=== PATIENT | female | born 1955 | race Caucasian/White ===

== ENCOUNTER 2023-10-24 11:16 | Outpatient (CLI) | payer MEDICARE, MEDICAID ==
[~2023-10-24 11:16] MED LIST: ALBU8HFA PO; ATOR80TA PO; BECL7.3A INH; CALC-952 PO; CETI10TA19 PO; FLUT50DI3 IH; FOLI0.4T14 PO; GABA300C PO; LINA5TAB4 PO; LISI2.5T89 PO; METF-1203 PO
== END 2023-10-24 23:59 | disposition home or self-care (01) ==
LOC: RAD 11:16
PROVIDERS: ATTEND Family Medicine
DX: M16.0 Bilateral primary osteoarthritis of hip (principal); M25.551 Pain in right hip
CPT/HCPCS: 73522

== ENCOUNTER 2024-11-12 09:57 | Inpatient (IN) | payer BC, OTHER ==
[~2024-11-12] VITALS: Ht 172.7 cm; Wt 110.7 kg
[~2024-11-12 09:57] MED LIST changes: +ATOR-429 PO; -ATOR80TA PO
--- NOTE | 2024-11-12 10:24 | Physician Documentation ---
History of Present Illness General Chief Complaint: Leg Pain Stated Complaint: POSS DVT IN L LEG Time Seen by MD: 10:13 Primary Medical Doctor: NONE History of Present Illness Initial Comments 69-year-old female referred to the emergency department for screening for your left DVT. No associated shortness of breath, near-syncope or palpitations. Left lower extremity with mild swelling only some plantar surface pain and some popliteal discomfort. Patient reports mom and dad both had bleeding diathesis making them at risk for clots. She has had numerous orthopedic surgeries. Medication Reconciliation Allergies: Coded Allergies: No Known Allergies (Unverified , 12/08/09) Scheduled Atorvastatin Calcium* (Lipitor*), 1 TABLET PO HS, (Reported) Beclomethasone Dipropionate (Qvar 40 MCG INHALER), 2 PUFFS INH DAILY, (Reported) Calcium Carbonate/Vitamin D3 (Calcium 600 + Vit D3 400 Tab), 1 TAB PO DAILY, (Reported) Cetirizine HCl (Cetirizine HCl), 1 TAB PO DAILY, (Reported) Fluticasone Propionate (Flovent Diskus), 50 MCG IH DAILY, (Reported) Folic Acid (FOLIC ACID tablet), 1 TAB PO DAILY, (Reported) Gabapentin (Neurontin), 1 CAP PO Q8H, (Reported) Linagliptin (Tradjenta), 1 TAB PO DAILY, (Reported) Lisinopril (Zestril), 1 TAB PO DAILY, (Reported) Metformin HCl (Metformin HCl), 2 TAB PO BID, (Reported) Scheduled PRN albuterol inhaler (Pro-Air Inhaler), 1-2 PUFFS PO Q4H PRN for shortness of breath, (Reported) Review of Systems All Other Systems at this time: Reviewed and Negative Constitutional: Denies: fever Musc: Reports: joint pain, joint swelling Physical Exam Physical Exam Vital Signs: RN Vital Signs have been reviewed: Yes, Temperature: 97.9, Source: Temporal, Heart Rate: 96, Respiratory Rate: 18, BP: 131/79, Pulse Oximetry: 97, Weight: 110.650 Oxygen Flow Rate: 0 General Appearance: alert, WD/WN, mild distress Head: normal inspection Face: normal inspection Pupils/EOM/Fundus: PERRLA Neck: full range of motion Respiratory: no respiratory distress Cardiovascular: regular rate, rhythm Extremities: normal range of motion, calf tenderness, inflammation, edema, other (Reproducible pain with dorsiflexion, plantar surface discomfort with deep palpation.) Neurologic: oriented x4, business initiatives manager II-XII nml as tested Motor / Sensory: no motor deficit, no sensory deficit Psychiatric: normal mood/affect Skin: normal color, warm/dry Lymphatic: no adenopathy Progress Results/Orders Results/Orders Orders - MANJIT GARCIA Vl Venous (11/12/24 ) Completed Orders - MANJIT GARCIA Vl Venous (11/12/24 ) Vital Signs 11/12/24 11/12/24 11/12/24 10:00 11:01 11:01 Temp 97.9 97.9 Pulse 96 83 Resp 18 16 16 B/P (MAP) 131/79 97/56 (70) Pulse Ox 97 97 O2 Flow Rate 0 0 Medical Decision Making Differential Diagnosis Examination history warrants ultrasound imaging of the left lower extremity to evaluate for deep vein thrombosis. Can overlook follow up ability of Narayan's cyst versus plantar fasciitis. Prelim report from roof service technician has a patient has on proximal deep vein thrombus. High suspicion for underlying coagulopathy being responsible for clot. We will go ahead and initiate labs and consult for admission. Interval reassessment shows patient remains without hypoxia, shortness of breath with the palpitations. Strong cap refill to the distal extremity. Departure Disposition: ADMITTED INPATIENT Impression: Primary Impression: DVT, lower extremity, proximal Qualified Codes: I82.4Y2 - Acute embolism and thrombosis of unspecified deep veins of left proximal lower extremity Referrals: NO PRIMARY CARE PROVIDER (PCP) Signature Scribe Signature: , Attestation: JOSE THOMAS C PAC Nov 12, 2024 10:24
--- NOTE | 2024-11-12 13:45 | VASCULAR REPORT ---
Bilateral lower extremity venous duplex Clinical History: Pain Comparison: None Technique: Duplex Doppler evaluation of the deep venous systems of both lower extremities from the common femora l veins to the popliteal veins including color Doppler and spectral/pulsed waveform analysis was perf ormed. Findings: RIGHT SIDE: The common femoral vein demonstrates appropriate compressibility and waveform variability. LEFT SIDE: The common femoral vein is partially compressible There is compressibility/patency of the great saphenous vein at the proximal thigh. The femoral vein demonstrates chronic thrombus and noncompressibility. The popliteal vein demonstrates chronic thrombus and noncompressibility.. There is normal compressibility at the tibioperoneal trunk. Impression: Chronic occlusive thrombus noted throughout the left leg from the femoral vein to the popliteal vein. No thrombus noted in the posterior tibial vein and peroneal veins. Left common femoral vein appears partially occluded. Left greater saphenous vein appears compressible with spontaneous phasic flow. Contralateral common femoral vein shows normal spontaneous phasic flow and augmentation.
[2024-11-12] MEDS ORDERED: acetaminophen 325mg tablet PO PRN (14:25)
[2024-11-12] MEDS ORDERED: ondansetron/PF 4mg/2ml inj IV PRN (14:25)
[2024-11-12] MEDS ORDERED: magnesium hydroxide 30ml (MOM) UD suspension PO PRN (14:25)
[2024-11-12] MEDS ORDERED: potassium Cl 20 mEq SR tablet PO PRN ×2 (14:25)
[2024-11-12] MEDS ORDERED: magnesium sulf-water 2g/50mL 50 ML IV PRN (14:25)
[2024-11-12] MEDS ORDERED: magnesium sulf-water 4G/100mL 100 ML IV PRN (14:25)
[2024-11-12] MEDS ORDERED: mag hydrox/Alum hydrox/simeth 30ml oral suspension PO PRN (14:25)
[2024-11-12] MEDS ORDERED: potassium Cl 40MEQ/1/2NS 520ml 520 ML IV PRN (14:25)
[2024-11-12] MEDS ORDERED: morphine 2 MG/ML inj. syringe IV PRN ×2 (14:25)
[2024-11-12 14:26] LABS: BASOPHILS # (AUTO) 0.1 X10'3 (0-0.2); BASOPHILS % (AUTO) 0.7 % (0-1); EOSINOPHILS # (AUTO) 0.7 X10'3 (0-0.9); EOSINOPHILS % (AUTO) 7.5 % (0-6); HEMATOCRIT 35.7 % (35.0-45.0); HEMOGLOBIN 11.7 g/dl (12.0-16.0); LYMPHOCYTES # (AUTO) 2.4 X10'3 (1.1-4.8); MEAN CORPUSCULAR HEMOGLOBIN 29.7 PG (27.0-31.0); MEAN CORPUSCULAR HGB CONC 32.7 g/dL (33.0-36.5); MEAN CORPUSCULAR VOLUME 90.7 FL (78-98); MEAN PLATELET VOLUME 8.3 FL (7.4-10.4); MONOCYTES # (AUTO) 0.4 X10'3 (0-0.9); MONOCYTES % (AUTO) 5.1 % (2-12); NEUTROPHILS # (AUTO) 5.2 X10'3 (1.8-7.7); NEUTROPHILS % (AUTO) 59.7 % (42-75); PLATELET COUNT 273 X10'3 (140-440); RED BLOOD COUNT 3.93 X10'6 (4.20-5.60); RED CELL DISTRIBUTION WIDTH 14.6 % (11.5-14.5); WHITE BLOOD COUNT 8.8 X10'3 (4.5-11.0)
[2024-11-12 14:49] LABS: ALANINE AMINOTRANSFERASE 19 U/L (12-78); ALBUMIN 3.4 G/DL (3.4-5.0); ALBUMIN/GLOBULIN RATIO 0.9 (1.1-1.5); ALKALINE PHOSPHATASE 98 IU/L (46-116); ANION GAP 11 (8-16); ASPARTATE AMINO TRANSFERASE 13 U/L (10-37); BILIRUBIN,TOTAL 0.7 MG/DL (0.1-1.0); BLOOD UREA NITROGEN 22 MG/DL (7-18); BUN/CREATININE RATIO 23.7 (10.0-20.0); CALCIUM 9.1 MG/DL (8.5-10.1); CHLORIDE 107 MMOL/L (99-107); CREATININE 0.93 MG/DL (0.40-0.90); GLUCOSE 103 MG/DL (70-104); POTASSIUM 4.2 MMOL/L (3.5-5.1); SODIUM 145 MMOL/L (135-145); TOTAL CARBON DIOXIDE 27.2 MMOL/L (24-32); eCRCL 59 ML/MIN; eGFR 60 ML/MIN
[2024-11-12 14:50] LABS: APTT 22 SECONDS (22-32); PROTHROMBIN TIME 10.4 SECONDS (9.0-12.0)
[2024-11-12] MEDS: HEPARIN DRIP DVT/PE -**PHARMACIST TO DOSE IV SCH (14:55)
--- NOTE | 2024-11-12 15:00 | HISTORY AND PHYSICAL-Residence ---
History & Physical Providers to CC Resident Creating Document: LIDA CHAVEZ, RES ~ History of Present Illness Primary Medical Doctor: Jenny Puri DO. [facility]. Waist Pleater: Dr. Patton Reason for Admit\Complaint: Left lower extremity swelling History of Present Illness Jenny Puri DO. [facility]. Waist Pleater: Dr. Patton Urologist: Dr. Arrington 69 years old female patient with past medical history of asthma, diabetes mellitus, kidney stones, dyslipidemia came to the hospital with chief complaint of left lower extremity swelling. The patient reports that three days ago she noticed that her left lower extremity was getting puffy, up in the following days she states that this swelling was not improving reason for which she decided to go to an urgent care were recommended her to come to the hospital. The patient endorses that associated to this is wanting she does have pain described as a tingling type, without radiation, exacerbated with palpation, improved with resting, scaling as 2/10 when resting and 5/10 with movement. She denies any recent history of traveling or immobilization. Currently denies chest pain, shortness of, palpitations, urinary or intestinal symptoms. Allergies: Coded Allergies: No Known Allergies (Unverified , 12/08/09) Home Medications Home Medications Active Reported Calcium 600 + Vit D3 400 Tab (Calcium Carbonate/Vitamin D3) 1 Each Tablet 1 Tab PO DAILY Tradjenta (Linagliptin) 5 Mg Tablet 1 Tab PO DAILY 30 Days FOLIC ACID tablet (Folic Acid) 0.4 Mg Tablet 1 Tab PO DAILY 30 Days Neurontin (Gabapentin) 300 Mg Capsule 1 Cap PO Q8H 30 Days Zestril (Lisinopril) 2.5 Mg Tablet 1 Tab PO DAILY 30 Days Cetirizine HCl 10 Mg Tab.chew 1 Tab PO DAILY 30 Days Flovent Diskus (Fluticasone Propionate) 50 Mcg Disk.w.dev 50 Mcg IH DAILY Pro-Air Inhaler (Albuterol) 8.5 Gm Inhaler 1-2 Puffs PO Q4H PRN Qvar 40 MCG INHALER (Beclomethasone Dipropionate) 40 Mcg/Actuation Inhaler 2 Puffs INH DAILY Lipitor* (Atorvastatin Calcium) 80 Mg Tablet 1 Tablet PO HS Metformin HCl 500 Mg Tablet 2 Tab PO BID Past Medical History Past Medical History Asthma. Diabetes mellitus currently taking metformin. Kidney stones. Dyslipidemia taking atorvastatin 80 mg daily. Past Surgical History Surgical History Comment Left knee replacement 10 years ago. Right knee replacement five years ago. Nephrolithiasis with lithotripsy with stent placement 1 year ago. Lumbar spine orthopedic surgery. Family History Family History: Maternal family history of coagulation disorder Paternal family history of coagulation disorder Past Social History Smoking: Quit greater than 1 year (As per patient she quit smoking 40 years ago. She used to smoke for 15-20 years around half to one pack a day.) Alcohol Use: Rarely (At holidays, about 1 drink per year. ) Drug Use: None Lives with: Family Lives In: Home Occupation: disabled, retired (The patient used to work as a bus dispatcher [place] ROS All Other Systems: Reviewed and Negative Cardiovascular: Denies: chest pain, lightheadedness, palpitations Gastrointestinal: Denies: abdominal pain, diarrhea Genitourinary: Denies: burning, hematuria, pain Exam Vitals: Vital Signs Date Time Temp Pulse Resp B/P (MAP) Pulse Ox O2 Delivery O2 Flow Rate FiO2 11/12/24 11:01 97.9 83 16 97/56 (70) 97 0 Physical exam: General: Well alert, well oriented, not confused, not agitated, not in acute distress, well cooperated during the physical. HEENT: Conjunctive are pink, sclerae clear, no icterus, pupil is equal in both sides, reactive to light, no ear discharge, no pharyngeal erythema or an edema. Neck: Supple, no JVD, no lymphadenopathy and thyromegaly. Chest: Equal air entry on both lungs, no additional sounds no rhonchi no wheezing at the moment. Cardiovascular: S1-S2 regular sinus rhythm and, regular rate, no gallops, no rubs, no murmurs Abdomen: No visible peristalsis, Bowel sounds present on auscultation, soft, nontender, no guarding, no rigidity Extremities: No obvious deformities, capillary refill intact, peripheral pulsations are intact on both sides. Tenderness in the left lower extremity with deep palpation. Edema in left lower extremity nonpitting. Presence of scars in bilateral knees. Central Nervous System: No focal neurological deficits, no motor or sensory weakness in all 4 extremities, could move all 4 extremities, 2+ deep tendon reflexes, negative Babinski. Musculoskeletal: No joint swelling, deformities, inflammations, and no scoliosis. Mild tenderness at the level of the lumbar spine, scar the level of the lumbar spine. Skin: Warm and dry. Diagnostic Data Last Recorded Lab Results: 11/12/24 1403 Diagnostic Data: Laboratory Tests Test 11/12/24 14:03 Coagulation Comments Advance Care Planning Advanced Care plannin - 30 Minutes (I spent a total of 17 minutes on reviewing various resuscitative measures/ACP with the patient at the time of admission. The patient has decided on a full code status.) Additional Plan Assessment and plan: 69-year-old female patient came to the hospital with chief complaint of left lower extremity swelling. Left lower extremity swelling: Unprovoked DVT of left femoral vein: The patient came to the hospital with chief complaint of left lower extremity swelling. Tenderness to palpation. Vascular ultrasound: Chronic occlusive thrombus noted throughout the left leg from the femoral vein to the popliteal vein. No thrombus noted in the posterior tibial vein and peroneal veins. Left common femoral vein appears partially occluded. Left greater saphenous vein appears compressible with spontaneous phasic flow. Contralateral common femoral vein shows normal spontaneous phasic flow and augmentation. PT, INR and PTT within reference range. Started on heparin drip for DVT. Plan to continue for 48 hours. After that DOAC considered. Currently on NS at 50 mL/hour. The patient will require hypercoagulable state studies as an outpatient. Normocytic normochromic anemia: Hemoglobin 11.7, hematocrit 35.7, MCV 90.7. Follow-up iron studies. Diabetes mellitus: Glucose levels 103, hemoglobin A1c 6.3. Hyperglycemia/hypoglycemia protocol in place. Low-dose short-acting insulin sliding scale on place. History of Asthma: Albuterol p.r.n.. Code status: Full code DVT prophylaxis: Currently on heparin drip. Analgesia/sedation: Morphine, [place]. Line/tube: PIV GI prophylaxis: Protonix 40 mg p.o. daily. Nutrition: 75 carb controlled diet. PT: Ordered Prognosis: Guarded Disposition: The patient will be admitted to ortho floor. Lida Alvarado Internal Medicine Resident [facility] Date of Service: Nov 12, 2024 Billing Provider: STEFANIA ROPER MD Common Visit Codes: 01046-[id number] INP/OBS CARE (HIGH) Secondary Visit Codes: 60713-[id number] CARE PLAN 30 MINUTES LIDA CHAVEZ, MORTEZA Nov 12, 2024 15:00 STEFANIA ROPER MD Nov 13, 2024 21:40
[2024-11-12 15:06] LABS: THYROID STIMULATING HORMONE 1.19 ulU/ml (0.34-4.50)
[2024-11-12] MEDS ORDERED: heparin 10,000 units/1 ML INJ IV PRN (15:10)
[2024-11-12] MEDS: normal saline 1000ml 1,000 ML IV SCH (15:26)
[2024-11-12 15:32] LABS: HEMOGLOBIN A1C 6.3 % (4.5-6.2)
[2024-11-12] MEDS: heparin 10,000 units/1 ML INJ IV ONE (15:33)
[2024-11-12] MEDS: heparin 25,000 UNIT/250ml bag 250 ML IV PRN (15:35)
[2024-11-12] MEDS: MESSAGE TO NURSING IV ONE ×2 (15:39→22:50)
[2024-11-12 16:00] LABS: MAGNESIUM 1.4 MG/DL (1.5-2.4)
[2024-11-12 16:20] VITALS: BP 129/63; PULSE 74; RESP 16; TEMP 98.4; O2SAT 98
[2024-11-12 18:00] VITALS: BP 140/66; PULSE 94; RESP 16; TEMP 98.3; O2SAT 100
[2024-11-12] MEDS ORDERED: DEXTROSE 15 GM of carb/4 tabs (each vial/BOTTLE has 4 tablets) PO PRN ×2 (18:35)
[2024-11-12] MEDS ORDERED: glucagon, human recombinant 1mg kit SUBCUT PRN (18:35)
[2024-11-12] MEDS ORDERED: dextrose 50%-water 50ml dispensing syringe IV PRN ×2 (18:35)
[2024-11-12] MEDS ORDERED: albuterol 2.5 MG/3 ML nebule NEB PRN (18:35)
[2024-11-12] MEDS: K and/or MAG REPLACEMENT MC SCH (19:14)
--- NOTE | 2024-11-12 19:24 | RADIOLOGY REPORT ---
EXAM: XR Chest, 1 View CLINICAL INDICATION: screening hx of DVT TECHNIQUE: Frontal view of the chest. COMPARISON: None FINDINGS: LUNGS AND PLEURAL SPACES: Unremarkable. No consolidation. No pneumothorax. HEART: Unremarkable. No cardiomegaly. MEDIASTINUM: Unremarkable. Normal mediastinal contour. BONES/JOINTS: Unremarkable. No acute fracture. OTHER FINDINGS: . IMPRESSION: No acute cardiopulmonary process.
[2024-11-12 19:32] LABS: TOTAL IRON BINDING CAPACITY 300 UG/DL (259-388)
[2024-11-12 19:35] LABS: % IRON SATURATION 18 % (11-46); IRON 53 UG/DL (49-151)
[2024-11-12] MEDS: magnesium Cl slow-release 64mg tablet PO PRN (20:55)
[2024-11-12] MEDS: INSULIN LISPRO 100 UNIT/ML INSULN.PEN MULTI-DOSE SQ SCH (20:58)
[2024-11-12 22:00] VITALS: BP 120/58; PULSE 81; RESP 15; TEMP 98.1; O2SAT 94
[2024-11-12] MEDS: HYDROcodone/acetaminophen 5mg/325mg tablet PO PRN (23:20)
[2024-11-13] MEDS: MESSAGE TO NURSING IV ONE (03:30)
[2024-11-13 06:00] VITALS: BP 111/51; PULSE 79; RESP 16; TEMP 97.4; O2SAT 98
[2024-11-13] MEDS: pantoprazole 40mg Tablet.DR PO SCH (07:41)
[2024-11-13 08:41] LABS: BASOPHILS % (AUTO) 0.5 % (0-1); EOSINOPHILS # (AUTO) 0.6 X10'3 (0-0.9); EOSINOPHILS % (AUTO) 9.6 % (0-6); HEMATOCRIT 33.3 % (35.0-45.0); HEMOGLOBIN 11.2 g/dl (12.0-16.0); LYMPHOCYTES # (AUTO) 2.2 X10'3 (1.1-4.8); LYMPHOCYTES % (AUTO) 33.2 % (21-51); MEAN CORPUSCULAR HEMOGLOBIN 30.2 PG (27.0-31.0); MEAN CORPUSCULAR HGB CONC 33.6 g/dL (33.0-36.5); MEAN CORPUSCULAR VOLUME 89.8 FL (78-98); MEAN PLATELET VOLUME 8.3 FL (7.4-10.4); MONOCYTES # (AUTO) 0.3 X10'3 (0-0.9); MONOCYTES % (AUTO) 5.1 % (2-12); NEUTROPHILS # (AUTO) 3.4 X10'3 (1.8-7.7); NEUTROPHILS % (AUTO) 51.6 % (42-75); PLATELET COUNT 248 X10'3 (140-440); RED BLOOD COUNT 3.71 X10'6 (4.20-5.60); RED CELL DISTRIBUTION WIDTH 14.5 % (11.5-14.5); WHITE BLOOD COUNT 6.7 X10'3 (4.5-11.0)
[2024-11-13 09:00] LABS: ALANINE AMINOTRANSFERASE 17 U/L (12-78); ALBUMIN 3.1 G/DL (3.4-5.0); ALKALINE PHOSPHATASE 88 IU/L (46-116); ANION GAP 7 (8-16); ASPARTATE AMINO TRANSFERASE 19 U/L (10-37); BILIRUBIN,TOTAL 0.5 MG/DL (0.1-1.0); BLOOD UREA NITROGEN 15 MG/DL (7-18); CALCIUM 8.3 MG/DL (8.5-10.1); CHLORIDE 108 MMOL/L (99-107); GLUCOSE 131 MG/DL (70-104); MAGNESIUM 1.3 MG/DL (1.5-2.4); POTASSIUM 4.3 MMOL/L (3.5-5.1); SODIUM 143 MMOL/L (135-145); TOTAL PROTEIN 6.3 G/DL (6.4-8.2); eCRCL 55 ML/MIN; eGFR 55 ML/MIN
[2024-11-13] MEDS: apixaban 5mg tablet PO SCH (09:13)
[2024-11-13 09:31] LABS: CHOL/HDL RATIO 2.8 (0.00-4.99); CHOLESTEROL 118 MG/DL (0-200); HDL CHOLESTEROL 42 MG/DL (35-60); LDL CHOLESTEROL 55 MG/DL (50-100); TRIGLYCERIDES 126 MG/DL (20-135)
[2024-11-13 10:00] VITALS: BP 147/71; PULSE 77; RESP 20; TEMP 97.1; O2SAT 100
[2024-11-13 10:39] LABS: BILIRUBIN,URINE NEGATIVE (Neg); CLARITY,URINE CLEAR (Clear); COLOR,URINE YELLOW (Yellow); GLUCOSE, URINE NEGATIVE (Neg); KETONES,URINE NEGATIVE (Neg); LEUKOCYTE ESTERASE ,URINE SMALL (Neg); NITRITES, URINE NEGATIVE (Neg); OCCULT BLOOD,URINE TRACE-INTACT (Neg); PROTEIN,URINE NEGATIVE (Neg); UROBILINOGEN,URINE 0.2 E.U/dL (0.2-1.0)
[2024-11-13 10:50] LABS: UA COLLECTION TYPE NON-SPECIFIED
[2024-11-13 10:53] LABS: BACTERIA,URINE FEW /HPF (Neg); RBC,URINE 0-2 /HPF (0-2); SQUAMOUS EPITHELIAL CELL,UR FEW /LPF (FEW)
[2024-11-13 10:54] LABS: TRANSITIONAL EPI CELLS,URINE FEW /HPF
[2024-11-13 11:18] LABS: UA EOSINOPHILS NO EOS /HPF
[2024-11-13 11:19] LABS: TOTAL PROTEIN,URINE RANDOM 11.4 MG/DL
[2024-11-13 11:28] LABS: PRO BRAIN NATRIURETIC PEPTIDE 70 PG/ML (0-125)
[2024-11-13 12:11] VITALS: PULSE 74; RESP 14; O2SAT 98
--- NOTE | 2024-11-13 12:18 | PROGRESS NOTE- Residence ---
Progress Note - Resident Providers to CC Resident Creating Document: NAREN CHAVEZ, RES ~ Antibiotic Timeout Antibiotic Ordered?: No Subjective The patient has been evaluated at bedside. Currently denies any symptoms. Objective Vital Signs Date Time Temp Pulse Resp B/P (MAP) Pulse Ox O2 Delivery O2 Flow Rate FiO2 11/13/24 08:00 Room Air 11/13/24 06:00 97.4 79 16 111/51 (71) 98 11/12/24 15:42 0 Physical exam: General: Well alert, well oriented, not confused, not agitated, not in acute distress, well cooperated during the physical. HEENT: Conjunctive are pink, sclerae clear, no icterus, pupil is equal in both sides, reactive to light, no ear discharge, no pharyngeal erythema or an edema. Neck: Supple, no JVD, no lymphadenopathy and thyromegaly. Chest: Equal air entry on both lungs, no additional sounds no rhonchi no wheezing at the moment. Cardiovascular: S1-S2 regular sinus rhythm and, regular rate, no gallops, no rubs, no murmurs Abdomen: No visible peristalsis, Bowel sounds present on auscultation, soft, nontender, no guarding, no rigidity Extremities: No obvious deformities, capillary refill intact, peripheral pulsations are intact on both sides. Tenderness in the left lower extremity with deep palpation. Edema in left lower extremity nonpitting. Presence of scars in bilateral knees. Central Nervous System: No focal neurological deficits, no motor or sensory weakness in all 4 extremities, could move all 4 extremities, 2+ deep tendon reflexes, negative Babinski. Musculoskeletal: No joint swelling, deformities, inflammations, and no scoliosis. Mild tenderness at the level of the lumbar spine, scar the level of the lumbar spine. Skin: Warm and dry. Result Diagram: 11/13/24 0811 11/13/24 0811 Coagulation Studies Laboratory Tests Test 11/12/24 14:03 11/13/24 08:11 Prothrombin Time 10.4 SECONDS (9.0-12.0) INR International Normalized Ratio 1.0 INR Activated Partial Thromboplast Time 22 SECONDS (22-32) APTT (Heparin Protocol) 59 SECONDS (45-75) Coagulation Comments Assessment Assessment 69-year-old female patient came to the hospital with chief complaint of left lower extremity swelling. Plan Plan Left lower extremity swelling: Unprovoked DVT of left femoral vein: The patient came to the hospital with chief complaint of left lower extremity swelling. Tenderness to palpation. Vascular ultrasound: Chronic occlusive thrombus noted throughout the left leg from the femoral vein to the popliteal vein. No thrombus noted in the posterior tibial vein and peroneal veins. Left common femoral vein appears partially occluded. Left greater saphenous vein appears compressible with spontaneous phasic flow. Contralateral common femoral vein shows normal spontaneous phasic flow and augmentation. PT, INR and PTT within reference range. Started on heparin drip for DVT. Plan to continue for 48 hours. After that DOAC considered. Currently on NS at 50 mL/hour. The patient will require hypercoagulable state studies as an outpatient. 11/13/2024: The patient reports improvement of symptoms. Transitioning heparin to Eliquis 10 mg b.i.d. anticipated discharge tomorrow. Normocytic normochromic anemia: Hemoglobin 11.7, hematocrit 35.7, MCV 90.7. Follow-up iron studies. 11/13/2024: Iron, TIBC, ferritin within reference range. Ferrous sulfate 325 mg t.i.d.. Diabetes mellitus: Glucose levels 103, hemoglobin A1c 6.3. Hyperglycemia/hypoglycemia protocol in place. Low-dose short-acting insulin sliding scale on place. 11/13/2024: Glucose levels 131. We will continue protocol. History of Asthma: Albuterol p.r.n. Code status: Full code DVT prophylaxis: Currently on Eliquis. Analgesia/sedation: Morphine, [place]. Line/tube: PIV. GI prophylaxis: Protonix 40 mg p.o. daily. Nutrition: 75 carb controlled diet. PT: Ordered Prognosis: Guarded Disposition: Pending physical therapy evaluation. Anticipated discharge tomorrow. Naren Alvarado Internal Medicine Resident [facility] Addendum will need hypercoagulable state work up as outpt Date of Service: Nov 13, 2024 Billing Provider: STEFANIA ROPER MD Common Visit Codes: [id number] INP/OBS CARE(HIGH) NAREN CHAVEZ, RES Nov 13, 2024 12:18 STEFANIA ROPER MD Nov 13, 2024 21:42
[2024-11-13] MEDS: ferrous sulfate 325mg tablet PO SCH (14:50)
[2024-11-13 18:00] VITALS: BP 122/56; PULSE 79; RESP 20; TEMP 97.8; O2SAT 98
[2024-11-13 20:08] VITALS: PULSE 81; RESP 14; O2SAT 97
[2024-11-13 22:00] VITALS: BP 145/69; PULSE 78; RESP 13; TEMP 97.7; O2SAT 95
[2024-11-13] MEDS: HYDROcodone/acetaminophen 10/325mg tab PO PRN (23:00)
[2024-11-14 06:00] VITALS: BP 138/63; PULSE 81; RESP 18; TEMP 97.6; O2SAT 99
[2024-11-14 06:19] LABS: BASOPHILS % (AUTO) 0.3 % (0-1); EOSINOPHILS # (AUTO) 0.6 X10'3 (0-0.9); EOSINOPHILS % (AUTO) 8.7 % (0-6); HEMATOCRIT 33.1 % (35.0-45.0); HEMOGLOBIN 11.2 g/dl (12.0-16.0); LYMPHOCYTES # (AUTO) 2.5 X10'3 (1.1-4.8); LYMPHOCYTES % (AUTO) 34.7 % (21-51); MEAN CORPUSCULAR HEMOGLOBIN 30.6 PG (27.0-31.0); MEAN CORPUSCULAR HGB CONC 33.9 g/dL (33.0-36.5); MEAN CORPUSCULAR VOLUME 90.3 FL (78-98); MEAN PLATELET VOLUME 7.8 FL (7.4-10.4); MONOCYTES # (AUTO) 0.5 X10'3 (0-0.9); MONOCYTES % (AUTO) 6.6 % (2-12); NEUTROPHILS # (AUTO) 3.6 X10'3 (1.8-7.7); NEUTROPHILS % (AUTO) 49.7 % (42-75); PLATELET COUNT 260 X10'3 (140-440); RED BLOOD COUNT 3.66 X10'6 (4.20-5.60); RED CELL DISTRIBUTION WIDTH 14.4 % (11.5-14.5); WHITE BLOOD COUNT 7.2 X10'3 (4.5-11.0)
[2024-11-14 06:25] LABS: ALANINE AMINOTRANSFERASE 22 U/L (12-78); ALBUMIN 3.1 G/DL (3.4-5.0); ALBUMIN/GLOBULIN RATIO 0.9 (1.1-1.5); ALKALINE PHOSPHATASE 88 IU/L (46-116); ANION GAP 6 (8-16); ASPARTATE AMINO TRANSFERASE 13 U/L (10-37); BILIRUBIN,TOTAL 0.4 MG/DL (0.1-1.0); BLOOD UREA NITROGEN 13 MG/DL (7-18); CALCIUM 8.6 MG/DL (8.5-10.1); CHLORIDE 108 MMOL/L (99-107); GLUCOSE 118 MG/DL (70-104); MAGNESIUM 1.4 MG/DL (1.5-2.4); SODIUM 144 MMOL/L (135-145); TOTAL CARBON DIOXIDE 30.5 MMOL/L (24-32); TOTAL PROTEIN 6.4 G/DL (6.4-8.2); eCRCL 55 ML/MIN; eGFR 55 ML/MIN
[2024-11-14 08:00] VITALS: RESP 20; O2SAT 98
[2024-11-14] MEDS ORDERED: APIX5TAB3 PO ×2 (09:54→10:08)
[2024-11-14 10:00] VITALS: BP 125/70; PULSE 90; RESP 16; TEMP 98.2; O2SAT 93
[2024-11-14 11:17] VITALS: PULSE 74; RESP 16; O2SAT 97
--- NOTE | 2024-11-14 13:51 | DISCHARGE SUMMARY-Residence ---
Discharge Summary Providers to CC Resident Creating Document: LIDA CHAVEZ, RES ~ Discharge Summary Admission Diagnosis: Lower extremity swelling Hospital Course DATE OF ADMISSION: 11/12/2024 DATE OF DISCHARGE: 11/14/2024 Discharge Diagnosis\Comment: Left lower extremity swelling Unprovoked DVT of left femoral vein, unable to exclude hypercoagulable state Normocytic normochromic anemia Diabetes mellitus History of Asthma Operations\Procedures: None Consultants: None Complications: None Condition on DC: Stable New Medications: Apixaban (Eliquis) 5 Mg Tablet 10 MG PO BID for 30 Days, #48 TAB take 2 talets of 5 mg every 12 hours for 6 days. then 5 mg every 12 hours. Continued Medications: albuterol inhaler (Pro-Air Inhaler) 8.5 Gm Inhaler 1-2 PUFFS PO Q4H PRN for shortness of breath, #1 INH Atorvastatin Calcium* (Lipitor*) 80 Mg Tablet 1 TABLET PO HS, TABLET Beclomethasone Dipropionate (Qvar 40 MCG INHALER) 40 Mcg/Actuation Inhaler 2 PUFFS INH DAILY, #8.7 GM 5 Refills Calcium Carbonate/Vitamin D3 (Calcium 600 + Vit D3 400 Tab) 600 Mg Calcium-10 Mcg (400 Unit) Tablet 1 TAB PO BID Cetirizine HCl (Cetirizine HCl) 10 Mg Tab.chew 1 TAB PO DAILY for 30 Days, #30 TAB Fluticasone Propionate (Flovent Diskus) 50 Mcg Disk.w.dev 50 MCG IH DAILY, EACH Folic Acid (FOLIC ACID tablet) 0.4 Mg Tablet 1 TAB PO DAILY for 30 Days, #30 TAB 0 Refills Gabapentin (Neurontin) 300 Mg Capsule 1 CAP PO BID for 30 Days, #90 CAP Linagliptin (Tradjenta) 5 Mg Tablet 1 TAB PO DAILY for 30 Days, #30 TAB Lisinopril (Zestril) 2.5 Mg Tablet 1 TAB PO DAILY for 30 Days, #30 TAB 0 Refills Metformin HCl (Metformin HCl) 500 Mg Tablet 2 TAB PO BID Discharge Summary: HPI: Jenny Puri DO. [facility]. [employer] As[employer]er: Dr. Patton Urologist: Dr. Arrington 69 years old female patient with past medical history of asthma, diabetes mellitus, kidney stones, dyslipidemia came to the hospital with chief complaint of left lower extremity swelling. The patient reports that three days ago she noticed that her left lower extremity was getting puffy, up in the following days she states that this swelling was not improving reason for which she decided to go to an urgent care were recommended her to come to the hospital. The patient endorses that associated to this is wanting she does have pain described as a tingling type, without radiation, exacerbated with palpation, improved with resting, scaling as 2/10 when resting and 5/10 with movement. She denies any recent history of traveling or immobilization. Currently denies chest pain, shortness of, palpitations, urinary or intestinal symptoms. Hospital course: 69-year-old female patient came to the hospital with chief complaint of left lower extremity swelling. The patient was admitted with a diagnosis of deep vein thrombosis of the left lower extremity. The patient was started on heparin drip, upon the following day the patient was transitioned to Eliquis 10 mg b.i.d. which will be completed for seven days and then will be transition to 5 mg b.i.d. The patient remained hemodynamically stable, the patient will be discharged home. Discharge course: The patient remains hemodynamically stable. The patient will be discharged with the following instructions: Call 911 orcome to the ER if severe pain, shortness of breath, chest pain, palpitations. Take eliquis 2 tablets of 5 mg every 12 hours for 6 days more. Then take 1 tablet of 5 mg every 12 hours. Follow up with your primary care physician for hypercoagulable state workup within 15 days. Continue your home medication. Physical exam: General: Well alert, well oriented, not confused, not agitated, not in acute distress, well cooperated during the physical. HEENT: Conjunctive are pink, sclerae clear, no icterus, pupil is equal in both sides, reactive to light, no ear discharge, no pharyngeal erythema or an edema. Neck: Supple, no JVD, no lymphadenopathy and thyromegaly. Chest: Equal air entry on both lungs, no additional sounds no rhonchi no wheez ing at the moment. Cardiovascular: S1-S2 regular sinus rhythm and, regular rate, no gallops, no rubs, no murmurs Abdomen: No visible peristalsis, Bowel sounds present on auscultation, soft, nontender, no guarding, no rigidity Extremities: No obvious deformities, capillary refill intact, peripheral pulsations are intact on both sides. Tenderness in the left lower extremity with deep palpation. Edema in left lower extremity nonpitting. Presence of scars in bilateral knees. Central Nervous System: No focal neurological deficits, no motor or sensory weakness in all 4 extremities, could move all 4 extremities, 2+ deep tendon reflexes, negative Babinski. Musculoskeletal: No joint swelling, deformities, inflammations, and no scoliosis. Mild tenderness at the level of the lumbar spine, scar the level of the lumbar spine. Skin: Warm and dry. Vital Signs Date Time Temp Pulse Resp B/P (MAP) Pulse Ox O2 Delivery O2 Flow Rate FiO2 11/14/24 11:17 74 16 97 Room Air* 0 21 11/14/24 10:00 98.2 125/70 (88) Laboratory Tests Test 11/12/24 14:03 11/12/24 15:36 11/12/24 18:39 11/12/24 20:53 White Blood Count 8.8 X10'3 Red Blood Count 3.93 X10'6 Hemoglobin 11.7 g/dl Hematocrit 35.7 % Mean Corpuscular Volume 90.7 FL Mean Corpuscular Hemoglobin 29.7 PG Mean Corpuscular Hemoglobin Concent 32.7 g/dL Red Cell Distribution Width 14.6 % Platelet Count 273 X10'3 Mean Platelet Volume 8.3 FL Neutrophils (%) (Auto) 59.7 % Lymphocytes (%) (Auto) 27.0 % Monocytes (%) (Auto) 5.1 % Eosinophils (%) (Auto) 7.5 % Basophils (%) (Auto) 0.7 % Neutrophils # (Auto) 5.2 X10'3 Lymphocytes # (Auto) 2.4 X10'3 Monocytes # (Auto) 0.4 X10'3 Eosinophils # (Auto) 0.7 X10'3 Basophils # (Auto) 0.1 X10'3 CBC Comment Prothrombin Time 10.4 SECONDS INR International Normalized Ratio 1.0 INR Activated Partial Thromboplast Time 22 SECONDS Coagulation Comments Sodium Level 145 MMOL/L Potassium Level 4.2 MMOL/L Chloride Level 107 MMOL/L Carbon Dioxide Level 27.2 MMOL/L Anion Gap 11 Blood Urea Nitrogen 22 MG/DL Creatinine 0.93 MG/DL Estimated GFR/1.73 m2 60 ML/MIN BUN/Creatinine Ratio 23.7 Glucose Level 103 MG/DL Hemoglobin A1c 6.3 % Calcium Level 9.1 MG/DL Magnesium Level 1.4 MG/DL Total Bilirubin 0.7 MG/DL Aspartate Amino Transf (AST/SGOT) 13 U/L Alanine Aminotransferase (ALT/SGPT) 19 U/L Alkaline Phosphatase 98 IU/L Total Protein 7.0 G/DL Albumin 3.4 G/DL Globulin 3.6 G/DL Albumin/Globulin Ratio 0.9 Thyroid Stimulating Hormone (TSH) 1.19 ulU/ml Chemistry Comments Osmolality 293 MOSM/K Iron Level 53 UG/DL Total Iron Binding Capacity 300 UG/DL Percent Iron Saturation 18 % Glucometer 250 mg/dl Test 11/12/24 21:44 11/13/24 02:47 11/13/24 07:41 11/13/24 08:11 APTT (Heparin Protocol) > 139 SECONDS 43 SECONDS 59 SECONDS Coagulation Comments Ferritin 123 NG/ML Glucometer 111 mg/dl White Blood Count 6.7 X10'3 Red Blood Count 3.71 X10'6 Hemoglobin 11.2 g/dl Hematocrit 33.3 % Mean Corpuscular Volume 89.8 FL Mean Corpuscular Hemoglobin 30.2 PG Mean Corpuscular Hemoglobin Concent 33.6 g/dL Red Cell Distribution Width 14.5 % Platelet Count 248 X10'3 Mean Platelet Volume 8.3 FL Neutrophils (%) (Auto) 51.6 % Lymphocytes (%) (Auto) 33.2 % Monocytes (%) (Auto) 5.1 % Eosinophils (%) (Auto) 9.6 % Basophils (%) (Auto) 0.5 % Neutrophils # (Auto) 3.4 X10'3 Lymphocytes # (Auto) 2.2 X10'3 Monocytes # (Auto) 0.3 X10'3 Eosinophils # (Auto) 0.6 X10'3 Basophils # (Auto) 0.0 X10'3 CBC Comment Sodium Level 143 MMOL/L Potassium Level 4.3 MMOL/L Chloride Level 108 MMOL/L Carbon Dioxide Level 28.0 MMOL/L Anion Gap 7 Blood Urea Nitrogen 15 MG/DL Creatinine 1.00 MG/DL Estimated GFR/1.73 m2 55 ML/MIN BUN/Creatinine Ratio 15.0 Glucose Level 131 MG/DL Calcium Level 8.3 MG/DL Magnesium Level 1.3 MG/DL Total Bilirubin 0.5 MG/DL Aspartate Amino Transf (AST/SGOT) 19 U/L Alanine Aminotransferase (ALT/SGPT) 17 U/L Alkaline Phosphatase 88 IU/L Pro-B-Type Natriuretic Peptide 70 PG/ML Total Protein 6.3 G/DL Albumin 3.1 G/DL Globulin 3.2 G/DL Albumin/Globulin Ratio 1.0 Triglycerides Level 126 MG/DL Cholesterol Level 118 MG/DL LDL Cholesterol 55 MG/DL HDL Cholesterol 42 MG/DL Cholesterol/HDL Ratio 2.8 Chemistry Comments Test 11/13/24 10:10 11/13/24 12:16 11/13/24 17:32 11/13/24 20:52 Urine Specimen Description Non-specified Urine Color Yellow Urine Clarity Clear Urine pH 6.0 Urine Specific [place] 1.015 Urine Protein Negative mg/dl Urine Glucose (UA) Negative mg/dl Urine Ketones Negative mg/dl Urine Occult Blood Trace-intact Urine Nitrite Negative Urine Bilirubin Negative Urine Urobilinogen 0.2 E.U/dL Urine Leukocyte Esterase Small Urine RBC 0-2 /HPF Urine WBC 5-10 /HPF Urine Squamous Epithelial Cells Few /LPF Urine Transitional Epithelial Cells Few /HPF Urine Bacteria Few /HPF Urine Culture Indicated Indicated Volume Urine Centrifuged 10 ml Urine Eosinophils No eos /HPF Urine Osmolality 476 MOSM/K Urine Random Creatinine 65.0 MG/DL Urine Random Total Protein 11.4 MG/DL Urine Random Sodium 107 MEQ/L Urine Random Urea 488.0 MG/DL Urine Comment Glucometer 104 mg/dl 127 mg/dl 161 mg/dl Test 11/14/24 05:03 11/14/24 07:54 White Blood Count 7.2 X10'3 Red Blood Count 3.66 X10'6 Hemoglobin 11.2 g/dl Hematocrit 33.1 % Mean Corpuscular Volume 90.3 FL Mean Corpuscular Hemoglobin 30.6 PG Mean Corpuscular Hemoglobin Concent 33.9 g/dL Red Cell Distribution Width 14.4 % Platelet Count 260 X10'3 Mean Platelet Volume 7.8 FL Neutrophils (%) (Auto) 49.7 % Lymphocytes (%) (Auto) 34.7 % Monocytes (%) (Auto) 6.6 % Eosinophils (%) (Auto) 8.7 % Basophils (%) (Auto) 0.3 % Neutrophils # (Auto) 3.6 X10'3 Lymphocytes # (Auto) 2.5 X10'3 Monocytes # (Auto) 0.5 X10'3 Eosinophils # (Auto) 0.6 X10'3 Basophils # (Auto) 0.0 X10'3 CBC Comment Sodium Level 144 MMOL/L Potassium Level 4.0 MMOL/L Chloride Level 108 MMOL/L Carbon Dioxide Level 30.5 MMOL/L Anion Gap 6 Blood Urea Nitrogen 13 MG/DL Creatinine 1.00 MG/DL Estimated GFR/1.73 m2 55 ML/MIN BUN/Creatinine Ratio 13.0 Glucose Level 118 MG/DL Calcium Level 8.6 MG/DL Magnesium Level 1.4 MG/DL Total Bilirubin 0.4 MG/DL Aspartate Amino Transf (AST/SGOT) 13 U/L Alanine Aminotransferase (ALT/SGPT) 22 U/L Alkaline Phosphatase 88 IU/L Total Protein 6.4 G/DL Albumin 3.1 G/DL Globulin 3.3 G/DL Albumin/Globulin Ratio 0.9 Chemistry Comments Glucometer 133 mg/dl *Problems/Diagnosis: (1) DVT, lower extremity, proximal Status: Acute Total Time Spent on D/C: > 30 Minutes Date of Service: Nov 14, 2024 Billing Provider: STEFANIA ROPER MD Common Visit Codes: 65177-EOE/OBS DISCH DAY >30min Problem Qualifiers (1) DVT, lower extremity, proximal: Chronicity: acute Laterality: left Qualified Codes: I82.4Y2 - Acute embolism and thrombosis of unspecified deep veins of left proximal lower extremity LIDA CHAVEZ, RES Nov 14, 2024 13:51 STEFANIA ROPER MD Nov 14, 2024 21:37
== END 2024-11-14 12:10 | disposition home or self-care (01) | DRG 300 ==
LOC: ER 09:58 → ED HOLD 14:26 → ORTHO 4S 17:07
PROVIDERS: ADMIT Internal Medicine; ATTEND Internal Medicine
DX: I82.412 Acute embolism and thrombosis of left femoral vein (principal); D68.59 Other primary thrombophilia; Z96.653 Presence of artificial knee joint, bilateral; D64.9 Anemia, unspecified; E11.9 Type 2 diabetes mellitus without complications; Z79.899 Other long term (current) drug therapy; Z87.891 Personal history of nicotine dependence
CPT/HCPCS: 36415; 71045; 80053; 80061; 81001; 82570; 82728; 82948; 83036; 83540; 83550; 83735; 83880; 83930; 83935; 84132; 84156; 84300; 84443; 84540; 85025; 85610; 85730; 87081; 87088; 87207; 93971; 94760; 96365; 96372; 97116; 97161; 97530; 99285; G0378; J1644; J1815; J7030